=== PATIENT | male | born 1990 | race Caucasian/White ===

== ENCOUNTER → 2025-07-27 | Outpatient (CLI) | payer OTHER | LOC: M PLAIMG 10:26 | PROVIDERS: ATTEND Internal Medicine | DX: M79.661 Pain in right lower leg (principal); M79.662 Pain in left lower leg ==

== ENCOUNTER → 2025-08-04 | Outpatient (CLI) | payer OTHER | LOC: M WHC 10:52 → EDUNIT# 11:00 | PROVIDERS: ATTEND Physician Assistant | DX: Z13.820 Encounter for screening for osteoporosis (principal) ==